=== PATIENT | male | born 1975 | race Two or more races ===

== ENCOUNTER 2017-10-26 18:05 | Inpatient (IN) | payer MEDICARE, OTHER ==
[2017-10-26] MEDS ORDERED: Sodium Chloride 0.9% 1,000 ML IV ONE (18:16)
--- NOTE | 2017-10-26 18:23 | ED Physician Chart ---
ED Chief Complaint/HPI - Patient Information Date Seen:: 10/26/17 Time Seen:: 18:00 Chief Complaint:: fever History of Present Illness:: Patient's had temperature up to 100.4 today and congestion for an unspecified length of time at his [facility] facility. Chest x-ray taken they are showed bilateral pneumonia. Allergies:: Allergies Allergy/AdvReac Type Severity Reaction Status Date / Time No Known Allergies Allergy Verified 10/26/17 18:12 Historian:: EMS Review:: Transfer documents Reviewed ED Review of Systems - Review of Systems General/Constitutional: Fever Skin: No skin lesions Head: No headache Eyes: No loss of vision ENT: No earache Neck: No neck pain Cardio Vascular: No chest pain Pulmonary: No wheezing GI: No nausea, No vomiting, No diarrhea G/U: No dysuria Musculoskeletal: No bone or joint pain, No back pain, No muscle pain Psychiatric: Prior psych history ED Past Medical History - Past Medical History Past Medical History: Asthma/COPD, Other (psychosis; schizophrenia; avascular necrosis of the left hip) Family History: Other (unavailable) Social History: Care Facility Surgical History: other (unknown) Psychiatricy History: Schizophrenia, Other (psychosis) Family Medical History - Family Member Mother History Unknown: Yes ED Physical Exam - Physical Examination Other Gen/Cons comments:: Chronically ill-appearing; fairly verbal Head: Atraumatic Eyes: Lids, conjuctiva normal, PERRL Skin: Nl inspection, No rash, No skin lesions ENMT: External ears, nose nl Neck: No nuchal rigidity Respiratory: Nl effort/Exclusion, Clear to Auscultation, No Wheeze/Rhonchi/Rales Other Cardio Vascular comments:: Heart sounds barely audible GI: No tenderness/rebounding/guarding, No organomegaly : No CVA tenderness Other Extremities comments:: Flexion deformity of wrist and fingers; plantar flexion deformity of feet Neuro/Psych: No focal deficits ED Labs/Radiology/EKG Results - Lab Results Results: Laboratory Results - last 24 hr 10/26/17 10/26/17 10/26/17 18:29 18:29 18:29 WBC 16.6 H RBC 4.89 Hgb 13.9 Hct 42.4 MCV 86.7 MCH 28.4 MCHC Differential 32.8 RDW 12.9 Plt Count 579 H MPV 6.7 Band Neutrophils % 6 Neutrophils (Manual) 89 H Lymphocytes 4 L Monocytes 1 L Eosinophils 0 Basophils 0 Platelet Estimate INCREASED PLATELETS Sodium 125 L Potassium 4.3 Chloride 89 L Carbon Dioxide 25.8 Anion Gap 14.5 BUN 25 Creatinine 0.5 L Est GFR ( Amer) > 60.0 Est GFR (Non-Af Amer) > 60.0 BUN/Creatinine Ratio 50.0 Glucose 115 H Whole Bld Lactic Acid 1.84 Calcium 9.5 Magnesium 2.0 - Radiology Results Results: Chest x-ray appeared negative to ma ED Reassessment (Disposition) - Reassessment Reassessment Condition:: Unchanged - Diagnosis Diagnosis:: Pneumonia; hypoxemia; schizophrenia; psychosis - Patient Disposition Admitted to:: Telemetry Spoke to:: Anna Gonzalez Admitting Medical Physician:: Anna Gonzalez Condition at Disposition:: Stable, Unchanged
[2017-10-26 18:36] LABS: HEMATOCRIT 42.4 % (41.0-60); HEMOGLOBIN 13.9 gm/dL (12-16); MANUAL DIFF REQUIRED? YES; MEAN CELL VOLUME 86.7 fl (80-99); MEAN CORPUSCULAR HEMOGLOBIN 28.4 pg (26.0-30.0); MEAN CORPUSCULAR HGB CONC 32.8 pg (28.0-36.0); MEAN PLATELET VOLUME 6.7 fl; PLATELET COUNT 579 Th/cmm (150-400); RED BLOOD COUNT 4.89 Mil/cmm (4.30-5.70); RED CELL DISTRIBUTION WIDTH 12.9 % (11.5-20.0)
[2017-10-26 18:46] LABS: WHITE BLOOD COUNT 16.6 Th/cmm (4.8-10.8)
[2017-10-26 18:53] LABS: ANION GAP 14.5 (7.0-16.0); BUN - UREA NITROGEN 25 mg/dL (7-25); CALCIUM SERUM 9.5 mg/dL (8.6-10.3); CARBON DIOXIDE 25.8 mEq/L (21.0-31.0); CHLORIDE 89 mEq/L (98-107); CREATININE - SERUM 0.5 mg/dL (0.7-1.3); GFR AFRICAN-AMERICAN > 60.0 ml/min (>90); GFR NON AFRICAN-AMERICAN > 60.0 ml/min; GLUCOSE 115 mg/dL (70-105); POTASSIUM SERUM 4.3 mEq/L (3.5-5.1); SODIUM SERUM 125 mEq/L (136-145)
[2017-10-26 19:11] LABS: BAND NEUTROPHILE 6 % (0-10); BASOPHIL 0 % (0-3); EOSINOPHIL 0 % (0-5); LYMPHOCYTE 4 % (20-50); MONOCYTE 1 % (2-10); NEUTROPHILS 89 % (40-80); PLATELET ESTIMATE INCREASED PLATELETS (NORMAL); TOTAL CELLS COUNTED 100
[2017-10-26] MEDS ORDERED: Piperacillin Sodium/Tazobact 3.375 gm Vial IV ONE ×2 (19:16→23:02)
[2017-10-26] MEDS ORDERED: Potassium Chloride 20 mEq ER Tab PO PRN (20:07)
[2017-10-26] MEDS ORDERED: Potassium Chloride 40 MEQ, Lidocaine 1% 20mL Vial 25 MG in Sodium Chloride 0.9% 250 ML IV PRN (20:07)
[2017-10-26] MEDS ORDERED: Mag Sulfate 2gm/50mL Premix 2 GM/50 ML BAG IV PRN (20:07)
[2017-10-26] MEDS: Sodium Chloride 0.9% 1,000 ML IV SCH (20:54)
[2017-10-26] MEDS ORDERED: Non-Formulary Item 1 EA (Melatonin [Melatonin] 1 TAB) PO SCH (21:00)
[2017-10-27] MEDS: Morphine Sulfate 4 mg/mL 1mL Syr IVP PRN ×2 (00:04→17:21)
[2017-10-27 03:37] VITALS: BP 128/61
[2017-10-27] MEDS ORDERED: Piperacillin Sodium/Tazobact 3.375 gm Vial IV ONE (05:12)
[2017-10-27 05:32] LABS: % BASOPHILS 1.7 % (0.0-2.0); % EOSINOPHILS 0.2 % (0.0-5.0); % LYMPHOCYTES 21.5 % (20.0-50.0); % MONOCYTES 3.5 % (2.0-10.0); % NEUTROPHILS 73.1 % (40.0-80.0); BASOPHILE ABSOLUTE 0.1 Th/cumm (0-0.2); LYMPHOCYTE ABSOLUTE 1.7 Th/cmm (1.5-3.0); MEAN CELL VOLUME 85.3 fl (80-99); MEAN CORPUSCULAR HEMOGLOBIN 28.8 pg (26.0-30.0); MEAN CORPUSCULAR HGB CONC 33.7 pg (28.0-36.0); MEAN PLATELET VOLUME 6.7 fl; MONOCYTE ABSOLUTE 0.3 Th/cmm (0.3-1.0); NEUTROPHILE ABSOLUTE 5.7 Th/cmm (1.8-8.0); RED BLOOD COUNT 3.82 Mil/cmm (4.30-5.70); RED CELL DISTRIBUTION WIDTH 12.9 % (11.5-20.0)
[2017-10-27 05:37] LABS: HEMATOCRIT 32.5 % (41.0-60); PLATELET COUNT 423 Th/cmm (150-400); WHITE BLOOD COUNT 7.8 Th/cmm (4.8-10.8)
[2017-10-27 05:46] LABS: ANION GAP 10.3 (7.0-16.0); BUN - UREA NITROGEN 13 mg/dL (7-25); CALCIUM SERUM 8.5 mg/dL (8.6-10.3); CARBON DIOXIDE 24.6 mEq/L (21.0-31.0); CHLORIDE 96 mEq/L (98-107); CREATININE - SERUM 0.4 mg/dL (0.7-1.3); GFR AFRICAN-AMERICAN > 60.0 ml/min (>90); GFR NON AFRICAN-AMERICAN > 60.0 ml/min; GLUCOSE 81 mg/dL (70-105); SODIUM SERUM 128 mEq/L (136-145)
[2017-10-27 06:00] LABS: POTASSIUM SERUM 2.9 mEq/L (3.5-5.1)
--- NOTE | 2017-10-27 07:51 | Diagnostic Imaging Report ---
Portable chest x-ray HISTORY: Shortness of breath There is a poor inspiration. The overall heart size appears normal. No definite acute focal pulmonary processes. IMPRESSION: 1. Allowing for a poor inspiration, no definite acute processes.
[2017-10-27] MEDS ORDERED: VTE Chemical Prophylaxis Screen/Admission MC PRN (08:00)
[2017-10-27] MEDS ORDERED: Probiotic Screen MC PRN (08:30)
[2017-10-27] MEDS: Lactobacillus Rhamnosus GG 15 Billion CFU CAP.SPRINK PO SCH (09:36)
--- NOTE | 2017-10-27 09:36 | History & Physical ---
ADMIT DATE: 10/26/2017 CHIEF COMPLAINT: Fevers, chills, cough, congestion. HISTORY OF PRESENT ILLNESS: The patient is a 42-year-old nonverbal male. He has a history of neuroleptic malignant syndrome. He has history of psychosis and had been on psych meds for years. At the nursing facility, he was found to have fevers, chills, and chest x-ray showed bilateral infiltrates. He was sent to the hospital as he was declining. He was found to have aspiration pneumonia and sepsis. PAST MEDICAL HISTORY: Significant for muscle spasm, neuroleptic malignant syndrome, COPD, overactive bladder, and psychosis. SOCIAL HISTORY: No history of alcohol, tobacco, or drug abuse. FAMILY HISTORY: Noncontributory. ALLERGIES: No known drug allergies. PAST SURGICAL HISTORY: No recent major surgeries. MEDICATIONS: All medications reviewed and reconciled. REVIEW OF SYSTEMS: GENERAL: Positive recent fatigue, fevers, and chills. HEENT: No recent head trauma or change in vision, taste, hearing, or smell. NEUROLOGIC: He has history of neuroleptic malignant syndrome. NECK: No recent tracheal deviation. ABDOMEN: No recent pain or distension. RESPIRATORY: Positive for recent cough, congestion, and decreased O2 saturations. MUSCULOSKELETAL: Positive for history of muscle contractures due to neuroleptic malignant syndrome. EXTREMITIES: No recent edema. SKIN: No recent rashes. PSYCHIATRIC: He has history of psychosis. GENITOURINARY: He has history of overactive bladder. PHYSICAL EXAMINATION: VITAL SIGNS: Temperature 97.8 degrees, heart rate is 98, respirations 18, blood pressure 111/68, currently no pain. GENERAL: No acute distress, awake. He is alert to name. HEENT: No acute issues. NECK: Trachea is midline. CARDIOVASCULAR: Regular rate and rhythm. RESPIRATORY: Decreased breath sounds bilaterally with congestion and rales. ABDOMEN: Nontender, nondistended. SKIN: No rashes. MUSCULOSKELETAL: He has significant muscle contractures upper and lower extremities. He is bedbound. EXTREMITIES: No edema. PSYCHIATRIC: Currently no psychosis or hallucinations. ABDOMEN: Nontender, nondistended. SKIN: No rashes. LABORATORY DATA: Chest x-ray from [facility] from yesterday 10/26/2017 shows bilateral infiltrates. Sodium 125, potassium 4.3, chloride 89, bicarbonate 25.8, BUN 25, creatinine 0.5, glucose 115, calcium is 9.5. Potassium is 2.9. White count is 16.6, hemoglobin is 13.9, platelet count is 579,000. ASSESSMENT/PLAN: 1. Bilateral aspiration pneumonia. 2. Sepsis. 3. Hypokalemia. 4. Muscle spasms. 5. Neuroleptic malignant syndrome. 6. Chronic obstructive pulmonary disease. 7. Overactive bladder. 8. Hyponatremia. PLAN: The patient is on IV normal saline. His sodium has come up to 128. He is also getting K-rider today. He is on IV Zosyn. Follow up on CBC, chemistry panel tomorrow. Prognosis is guarded. I have also started him on heparin for DVT prophylaxis. Continue pain control. He is on a soft diet with nectar thick consistency for the liquids as he has been at the [facility] facility. Continue IV Zosyn. Monitor for any reactions. JOB# [id number]
[2017-10-27] MEDS: Multivitamin w/ Minerals Tab PO SCH (09:38)
[2017-10-27] MEDS: Sodium Chloride 0.9% 1,000 ML IV SCH (14:18)
[2017-10-27 20:08] LABS: A1C % 6.2 % (4.0-6.0)
[2017-10-28] MEDS: Morphine Sulfate 4 mg/mL 1mL Syr IVP PRN ×2 (01:29→20:29)
[2017-10-28] MEDS: Sodium Chloride 0.9% 1,000 ML IV SCH ×2 (04:14→19:14)
[2017-10-28 05:51] LABS: % BASOPHILS 0.4 % (0.0-2.0); % EOSINOPHILS 0.5 % (0.0-5.0); % LYMPHOCYTES 20.8 % (20.0-50.0); % MONOCYTES 6.5 % (2.0-10.0); % NEUTROPHILS 71.8 % (40.0-80.0); HEMATOCRIT 31.4 % (41.0-60); HEMOGLOBIN 10.3 gm/dL (12-16); LYMPHOCYTE ABSOLUTE 1.2 Th/cmm (1.5-3.0); MEAN CELL VOLUME 86.2 fl (80-99); MEAN CORPUSCULAR HEMOGLOBIN 28.3 pg (26.0-30.0); MEAN CORPUSCULAR HGB CONC 32.8 pg (28.0-36.0); MEAN PLATELET VOLUME 6.9 fl; MONOCYTE ABSOLUTE 0.4 Th/cmm (0.3-1.0); NEUTROPHILE ABSOLUTE 4.2 Th/cmm (1.8-8.0); PLATELET COUNT 450 Th/cmm (150-400); RED BLOOD COUNT 3.64 Mil/cmm (4.30-5.70); RED CELL DISTRIBUTION WIDTH 12.9 % (11.5-20.0); WHITE BLOOD COUNT 5.8 Th/cmm (4.8-10.8)
[2017-10-28 06:06] LABS: BUN - UREA NITROGEN 7 mg/dL (7-25); CALCIUM SERUM 8.1 mg/dL (8.6-10.3); CARBON DIOXIDE 25.5 mEq/L (21.0-31.0); CHLORIDE 98 mEq/L (98-107); CREATININE - SERUM 0.3 mg/dL (0.7-1.3); GFR AFRICAN-AMERICAN > 60.0 ml/min (>90); GFR NON AFRICAN-AMERICAN > 60.0 ml/min; GLUCOSE 84 mg/dL (70-105); POTASSIUM SERUM 3.5 mEq/L (3.5-5.1); SODIUM SERUM 129 mEq/L (136-145)
[2017-10-28] MEDS: Multivitamin w/ Minerals Tab PO SCH (08:09)
[2017-10-28] MEDS: Lactobacillus Rhamnosus GG 15 Billion CFU CAP.SPRINK PO SCH (08:09)
--- NOTE | 2017-10-28 09:42 | General Progress Note ---
Subjective - Review of Systems Service Date: 10/28/17 Subjective: Pt seen and eval. NAD. In bed. Awake and alert. Met with pt's cousin, José Luis, and answered all her questions. Pt and cousin don't want to go back to [facility]. I met with senior construction manager and ostrich farm worker in order to respect their wishes. No n,v,d or cp. Pt has chronic pain from the muscle spasms and contractures. Objective - Results Result Diagrams: 10/28/17 05:13 10/28/17 05:13 Recent Labs: Laboratory Last Values WBC 5.8 Th/cmm (4.8-10.8) 10/28/17 05:13 RBC 3.64 Mil/cmm (4.30-5.70) L 10/28/17 05:13 Hgb 10.3 gm/dL (12-16) L 10/28/17 05:13 Hct 31.4 % (41.0-60) L 10/28/17 05:13 MCV 86.2 fl (80-99) 10/28/17 05:13 MCH 28.3 pg (26.0-30.0) 10/28/17 05:13 MCHC Differential 32.8 pg (28.0-36.0) 10/28/17 05:13 RDW 12.9 % (11.5-20.0) 10/28/17 05:13 Plt Count 450 Th/cmm (150-400) H 10/28/17 05:13 MPV 6.9 fl 10/28/17 05:13 Neutrophils % 71.8 % (40.0-80.0) 10/28/17 05:13 Band Neutrophils % 6 % (0-10) 10/26/17 18:29 Lymphocytes % 20.8 % (20.0-50.0) 10/28/17 05:13 Monocytes % 6.5 % (2.0-10.0) 10/28/17 05:13 Eosinophils % 0.5 % (0.0-5.0) 10/28/17 05:13 Basophils % 0.4 % (0.0-2.0) 10/28/17 05:13 Neutrophils (Manual) 89 % (40-80) H 10/26/17 18:29 Lymphocytes 4 % (20-50) L 10/26/17 18:29 Monocytes 1 % (2-10) L 10/26/17 18:29 Eosinophils 0 % (0-5) 10/26/17 18:29 Basophils 0 % (0-3) 10/26/17 18:29 Platelet Estimate INCREASED PLATELETS (NORMAL) 10/26/17 18:29 Sodium 129 mEq/L (136-145) L 10/28/17 05:13 Potassium 3.5 mEq/L (3.5-5.1) 10/28/17 05:13 Chloride 98 mEq/L (98-107) 10/28/17 05:13 Carbon Dioxide 25.5 mEq/L (21.0-31.0) 10/28/17 05:13 Anion Gap 9.0 (7.0-16.0) 10/28/17 05:13 BUN 7 mg/dL (7-25) 10/28/17 05:13 Creatinine 0.3 mg/dL (0.7-1.3) L 10/28/17 05:13 Est GFR ( Amer) > 60.0 ml/min (>90) 10/28/17 05:13 Est GFR (Non-Af Amer) > 60.0 ml/min 10/28/17 05:13 BUN/Creatinine Ratio 23.3 10/28/17 05:13 Glucose 84 mg/dL (70-105) 10/28/17 05:13 Hemoglobin A1c % 6.2 % (4.0-6.0) H 10/26/17 18:29 Whole Bld Lactic Acid 1.84 mmol/L (0.60-1.99) 10/26/17 18:29 Calcium 8.1 mg/dL (8.6-10.3) L 10/28/17 05:13 Magnesium 2.0 mg/dL (1.9-2.7) 10/26/17 18:29 - Physical Exam Vitals and I&O: Vital Signs Temp 97.7 F 10/28/17 04:44 Pulse 79 10/28/17 07:18 Resp 18 10/28/17 07:18 BP 102/51 10/28/17 04:44 Pulse Ox 98 10/28/17 07:18 Intake & Output 04/12/18 04/13/18 04/13/18 18:59 06:59 18:59 Intake Total 2172.5 1100 Output Total 0 Balance 2172.5 1100 Weight (lbs) 50.802 kg 56.155 kg Intake: Intake, IV Amount 1422.5 1100 Piperacillin Sodium/ 150 100 Tazobact 3.375 gm In Sodium Chloride 0.9% 50 ml @ 100 mls/hr IV Q6HR [facility] Rx#:[id number] Potassium Chloride 40 meq 272.5 Lidocaine 1% 20mL Vial 25 mg In Sodium Chloride 0.9% 250 ml @ 68 mls/hr IV DAILY PRN Rx#: [id number] Sodium Chloride 0.9% 1, 1000 1000 000 ml @ 75 mls/hr IV . [id number] [facility] Rx#:[id number] Oral 400 Other 350 Output: Stool 0 Other: # Voids 3 5 # Bowel Movements 1 Weight Source Bedscale Bedscale Active Medications: Current Medications Acetaminophen (Tylenol) 650 mg PO Q6H PRN PRN Reason: HEADACHE/TEMP ABOVE 100F Stop: 12/25/17 20:06 Last Admin: 10/27/17 00:05 Dose: 650 mg Bromocriptine Mesylate (Parlodel) 2.5 mg PO TID [facility] Stop: 12/26/17 08:59 Last Admin: 10/28/17 08:09 Dose: 2.5 mg Docusate Sodium (Colace) 100 mg PO BID PRN PRN Reason: Constipation Stop: 12/25/17 20:06 Heparin Sodium (Porcine) (Heparin) 5,000 units SUBQ Q12HR [facility] Stop: 12/25/17 20:59 Last Admin: 10/28/17 08:10 Dose: 5,000 units Potassium Chloride 40 meq/Lidocaine HCl 25 mg/ Sodium Chloride 272.5 mls @ 68 mls/hr IV DAILY PRN PRN Reason: k level less than 3.2 Stop: 12/25/17 20:06 Last Infusion: 10/27/17 12:30 Dose: Infused Magnesium Sulfate (Magnesium Sulfate Premix) 2 gm in 50 mls @ 25 mls/hr IV DAILY PRN PRN Reason: Magnesium level less than 1.6 Stop: 12/25/17 20:06 Sodium Chloride (Nacl 0.9%) 1,000 mls @ 75 mls/hr IV .[id number] [facility] Stop: 12/25/17 20:14 Last Admin: 10/28/17 04:14 Dose: 75 mls/hr Piperacillin Sod/Tazobactam (Sod 3.375 gm/ Sodium Chloride) 50 mls @ 100 mls/ hr IV Q6HR [facility] Stop: 12/26/17 00:00 Last Infusion: 10/28/17 06:01 Dose: Infused Lactobacillus Rhamnosus (Culturelle 15b) 1 each PO DAILY [facility] Stop: 12/26/17 08:59 Last Admin: 10/28/17 08:09 Dose: 1 each Lorazepam (Ativan) 1 mg IVP Q4HR PRN; Protocol PRN Reason: Agitation Last Admin: 10/28/17 04:18 Dose: 1 mg Magnesium Oxide (Mag-Oxide) 400 mg PO BID PRN PRN Reason: Mg less than 1.9 Stop: 12/25/17 20:06 Methocarbamol (Robaxin) 500 mg PO TID [facility] Stop: 12/26/17 08:59 Last Admin: 10/28/17 08:09 Dose: 500 mg Miscellaneous (Zosyn Iv Per Pharmacy) 1 ea PRN PRN PRN Reason: PROTOCOL Stop: 12/25/17 20:05 Miscellaneous (Vte Chemical Prophylaxis Screen/ Admission) 1 ea PRN PRN PRN Reason: PROTOCOL Stop: 12/26/17 07:59 Miscellaneous (Probiotic Screen) 1 ea PRN PRN PRN Reason: PROTOCOL Stop: 12/26/17 08:29 Morphine Sulfate (Morphine) 1 mg IVP Q4HR PRN PRN Reason: Severe Pain Stop: 12/25/17 20:06 Last Admin: 10/28/17 01:29 Dose: 1 mg Ondansetron HCl (Zofran) 4 mg IVP Q6H PRN PRN Reason: Nausea / Vomiting Stop: 12/25/17 20:06 Potassium Chloride (Klor-Con) 40 meq PO DAILY PRN PRN Reason: k level less than 3.5 Stop: 12/25/17 20:06 Quetiapine Fumarate (Seroquel) 100 mg PO HS [facility]ZZIE PRN Reason: Protocol Stop: 12/25/17 20:59 Last Admin: 10/27/17 20:12 Dose: 100 mg General: Alert, Cooperative HEENT: Atraumatic, PERRLA, EOMI Neck: Supple, no JVD, no Thyromegaly Cardiovascular: Regular rate, Normal S1, Normal S2 Lungs: Other (has bl rales) Assessment/Plan - Assessment Assessment: Asp PNA Neuroleptic Malignant syn-per history Muscle spasms COPD OAB Hyponatremia - Plan Plan: On IV Zosyn. Will send inquiries to other facilities. Met with niece, had an extended meeting. Continue pain control. Muscle spasms stable. Nutritional Asmnt/Malnutr-PDOC - Dietary Evaluation Malnutrition Findings (Please click <Entered> for more info): Nutritional Asmnt/Malnutrition Start: 10/27/17 16: 49 Text: Status: Complete Freq: Document 10/27/17 16:49 MONET (Rec: 10/27/17 17:03 [facility] Nutritional Asmnt/Malnutrition Patient General Information Nutritional Screening High Risk Consult Diagnosis aspiration PNA Pertinent Medical Hx/Surgical Hx muscle spasm, neuroleptic malignant syndrome, COPD, overactive bladder, psychosis Subjective Information Consult received for wound. Pt seen lying in bed at time of visit, family at bedside. Pt has no preference on food. Per EMR, pt consumed 75% of breakfast this morning. Current Diet Order/ Nutrition Support mech chopped, nectar liquid Pertinent Labs colace, culturelle, piperacillin, kcl, seroquel, nacl 0.9% Nutritional Hx/Data Height 1.65 m Height (Calculated Centimeters) 165.1 Current Weight (lbs) 50.802 kg Weight (Calculated Kilograms) 50.8 Weight (Calculated Grams) 07756.3 [place] Body Weight 136 Body Mass Index (BMI) 18.6 Weight Status Approriate GI Symptoms GI Symptoms None Difficult in: None Skin Integrity/Comment: Open small wound on fernanda prominence on left upper back Estimated Nutritional Goals BEE in Kcals: Using Current wt Calories/Kcals/Kg 27-32 Kcals Calculated 8357-2879 Protein: Using Current wt Protein g/k.2-1.4 Protein Calculated 61-71 Fluid: ml 1377-1632ml (1ml/kcal) Nutritional Problem 1. Problem Problem increased nutrition needs Etiology increased metabolic demand for wound healing Signs/Symptoms: small open wound on back Malnutrition Alert Body Fat Depletion (Non-Severe) Mild Depletion Protein-Calorie Malnutrition N/A Is there a minimum of two criteria No selected? Query Text:Check all the applicable criteria. A minimum of two criteria are recommended for diagnosis of either severe or non-severe malnutrition. Intervention/Recommendation Comments 1. Continue with current diet as ordered. Encouraged PO intake. 2. Monitor PO intake, wt, labs and skin integrity 3. F/U as high risk in 2-3 days, 10/29-10/30 Expected Outcomes/Goals Expected Outcomes/Goals 1. PO intake to meet at least 75% of nutritional needs. 2. Wt stability, wound to heal , labs to approach WNL.
--- NOTE | 2017-10-29 05:11 | General Progress Note ---
Subjective - Review of Systems Service Date: 10/29/17 Events since last encounter: The patient refuses to go back to [facility]. He would like to discuss the possibility of going to new [facility] facility. A list has been provided to the family Subjective: The patient is resting comfortably in bed. The patient has muscle spasms and bilateral upper and lower extremity contractures. No complaints at this time. Denies chest pain, shortness of breath, abdominal pain, dysuria, or falls Objective - Results Result Diagrams: 10/28/17 05:13 10/28/17 05:13 Recent Labs: Laboratory Last Values WBC 5.8 Th/cmm (4.8-10.8) 10/28/17 05:13 RBC 3.64 Mil/cmm (4.30-5.70) L 10/28/17 05:13 Hgb 10.3 gm/dL (12-16) L 10/28/17 05:13 Hct 31.4 % (41.0-60) L 10/28/17 05:13 MCV 86.2 fl (80-99) 10/28/17 05:13 MCH 28.3 pg (26.0-30.0) 10/28/17 05:13 MCHC Differential 32.8 pg (28.0-36.0) 10/28/17 05:13 RDW 12.9 % (11.5-20.0) 10/28/17 05:13 Plt Count 450 Th/cmm (150-400) H 10/28/17 05:13 MPV 6.9 fl 10/28/17 05:13 Neutrophils % 71.8 % (40.0-80.0) 10/28/17 05:13 Band Neutrophils % 6 % (0-10) 10/26/17 18:29 Lymphocytes % 20.8 % (20.0-50.0) 10/28/17 05:13 Monocytes % 6.5 % (2.0-10.0) 10/28/17 05:13 Eosinophils % 0.5 % (0.0-5.0) 10/28/17 05:13 Basophils % 0.4 % (0.0-2.0) 10/28/17 05:13 Neutrophils (Manual) 89 % (40-80) H 10/26/17 18:29 Lymphocytes 4 % (20-50) L 10/26/17 18:29 Monocytes 1 % (2-10) L 10/26/17 18:29 Eosinophils 0 % (0-5) 10/26/17 18:29 Basophils 0 % (0-3) 10/26/17 18:29 Platelet Estimate INCREASED PLATELETS (NORMAL) 10/26/17 18:29 Sodium 129 mEq/L (136-145) L 10/28/17 05:13 Potassium 3.5 mEq/L (3.5-5.1) 10/28/17 05:13 Chloride 98 mEq/L (98-107) 10/28/17 05:13 Carbon Dioxide 25.5 mEq/L (21.0-31.0) 10/28/17 05:13 Anion Gap 9.0 (7.0-16.0) 10/28/17 05:13 BUN 7 mg/dL (7-25) 10/28/17 05:13 Creatinine 0.3 mg/dL (0.7-1.3) L 10/28/17 05:13 Est GFR ( Amer) > 60.0 ml/min (>90) 10/28/17 05:13 Est GFR (Non-Af Amer) > 60.0 ml/min 10/28/17 05:13 BUN/Creatinine Ratio 23.3 10/28/17 05:13 Glucose 84 mg/dL (70-105) 10/28/17 05:13 Hemoglobin A1c % 6.2 % (4.0-6.0) H 10/26/17 18:29 Whole Bld Lactic Acid 1.84 mmol/L (0.60-1.99) 10/26/17 18:29 Calcium 8.1 mg/dL (8.6-10.3) L 10/28/17 05:13 Magnesium 2.0 mg/dL (1.9-2.7) 10/26/17 18:29 - Physical Exam Vitals and I&O: Vital Signs Temp 99.1 F 10/29/17 00:00 Pulse 70 10/29/17 00:00 Resp 17 10/29/17 00:00 BP 129/66 10/29/17 00:00 Pulse Ox 97 10/29/17 00:00 Intake & Output 10/28/17 10/28/17 10/29/17 06:59 18:59 06:59 Intake Total 1100 1850 50 Output Total 0 Balance 1100 1850 50 Weight (lbs) 56.155 kg 55.792 kg Intake: Intake, IV Amount 1100 1050 50 Piperacillin Sodium/ 100 50 50 Tazobact 3.375 gm In Sodium Chloride 0.9% 50 ml @ 100 mls/hr IV Q6HR [facility] Rx#:[id number] Sodium Chloride 0.9% 1, 1000 1000 000 ml @ 75 mls/hr IV . [id number] [facility] Rx#:[id number] Oral 800 Output: Stool 0 Other: # Voids 5 4 # Bowel Movements 1 Weight Source Bedscale Bedscale Active Medications: Current Medications Acetaminophen (Tylenol) 650 mg PO Q6H PRN PRN Reason: HEADACHE/TEMP ABOVE 100F Stop: 12/25/17 20:06 Last Admin: 10/28/17 12:57 Dose: 650 mg Bromocriptine Mesylate (Parlodel) 2.5 mg PO TID [facility] Stop: 12/26/17 08:59 Last Admin: 10/28/17 21:40 Dose: 2.5 mg Docusate Sodium (Colace) 100 mg PO BID PRN PRN Reason: Constipation Stop: 12/25/17 20:06 Heparin Sodium (Porcine) (Heparin) 5,000 units SUBQ Q12HR [facility] Stop: 12/25/17 20:59 Last Admin: 10/28/17 20:32 Dose: 5,000 units Potassium Chloride 40 meq/Lidocaine HCl 25 mg/ Sodium Chloride 272.5 mls @ 68 mls/hr IV DAILY PRN PRN Reason: k level less than 3.2 Stop: 12/25/17 20:06 Last Infusion: 10/27/17 12:30 Dose: Infused Magnesium Sulfate (Magnesium Sulfate Premix) 2 gm in 50 mls @ 25 mls/hr IV DAILY PRN PRN Reason: Magnesium level less than 1.6 Stop: 12/25/17 20:06 Sodium Chloride (Nacl 0.9%) 1,000 mls @ 75 mls/hr IV .[id number] [facility] Stop: 12/25/17 20:14 Last Admin: 10/28/17 19:14 Dose: 75 mls/hr Piperacillin Sod/Tazobactam (Sod 3.375 gm/ Sodium Chloride) 50 mls @ 100 mls/ hr IV Q6HR [facility] Stop: 12/26/17 00:00 Last Admin: 10/29/17 00:52 Dose: 100 mls/hr Lactobacillus Rhamnosus (Culturelle 15b) 1 each PO DAILY [facility] Stop: 12/26/17 08:59 Last Admin: 10/28/17 08:09 Dose: 1 each Lorazepam (Ativan) 1 mg IVP Q4HR PRN; Protocol PRN Reason: Agitation Last Admin: 10/28/17 12:16 Dose: 1 mg Magnesium Oxide (Mag-Oxide) 400 mg PO BID PRN PRN Reason: Mg less than 1.9 Stop: 12/25/17 20:06 Methocarbamol (Robaxin) 500 mg PO TID [facility] Stop: 12/26/17 08:59 Last Admin: 10/28/17 20:35 Dose: 500 mg Miscellaneous (Zosyn Iv Per Pharmacy) 1 ea PRN PRN PRN Reason: PROTOCOL Stop: 12/25/17 20:05 Miscellaneous (Vte Chemical Prophylaxis Screen/ Admission) 1 ea PRN PRN PRN Reason: PROTOCOL Stop: 12/26/17 07:59 Miscellaneous (Probiotic Screen) 1 ea PRN PRN PRN Reason: PROTOCOL Stop: 12/26/17 08:29 Morphine Sulfate (Morphine) 1 mg IVP Q4HR PRN PRN Reason: Severe Pain Stop: 12/25/17 20:06 Last Admin: 10/28/17 20:29 Dose: 1 mg Ondansetron HCl (Zofran) 4 mg IVP Q6H PRN PRN Reason: Nausea / Vomiting Stop: 12/25/17 20:06 Potassium Chloride (Klor-Con) 40 meq PO DAILY PRN PRN Reason: k level less than 3.5 Stop: 12/25/17 20:06 Quetiapine Fumarate (Seroquel) 100 mg PO HS LIZZIE PRN Reason: Protocol Stop: 12/25/17 20:59 Last Admin: 10/28/17 20:35 Dose: 100 mg General: Alert, Cooperative HEENT: Atraumatic, PERRLA, EOMI Neck: Supple, no JVD, no Thyromegaly Cardiovascular: Regular rate, Normal S1, Normal S2 Lungs: Other (has bl rales) Abdomen: Soft Neurological: Other (bilateral upper and lower extremity contractures) Assessment/Plan - Assessment Assessment: Asp PNA Neuroleptic Malignant syn-per history Muscle spasms COPD OAB Hyponatremia - Plan Plan: Continue IV antibiotics and respiratory support. Continue psychiatric medications. The patient and his family does not want to go back to [facility], a list of potential [facility] facilities has been brought into the family. We'll follow up with family as well as case management about possible placement. Nutritional Asmnt/Malnutr-PDOC - Dietary Evaluation Malnutrition Findings (Please click <Entered> for more info): Nutritional Asmnt/Malnutrition Start: 10/27/17 16: 49 Text: Status: Complete Freq: Document 10/27/17 16:49 MONET (Rec: 10/27/17 17:03 MONET LEONARDO-[email or web address]) Nutritional Asmnt/Malnutrition Patient General Information Nutritional Screening High Risk Consult Diagnosis aspiration PNA Pertinent Medical Hx/Surgical Hx muscle spasm, neuroleptic malignant syndrome, COPD, overactive bladder, psychosis Subjective Information Consult received for wound. Pt seen lying in bed at time of visit, family at bedside. Pt has no preference on food. Per EMR, pt consumed 75% of breakfast this morning. Current Diet Order/ Nutrition Support mech chopped, nectar liquid Pertinent Labs colace, culturelle, piperacillin, kcl, seroquel, nacl 0.9% Nutritional Hx/Data Height 1.65 m Height (Calculated Centimeters) 165.1 Current Weight (lbs) 50.802 kg Weight (Calculated Kilograms) 50.8 Weight (Calculated Grams) 71756.3 [place] Body Weight 136 Body Mass Index (BMI) 18.6 Weight Status Approriate GI Symptoms GI Symptoms None Difficult in: None Skin Integrity/Comment: Open small wound on fernanda prominence on left upper back Estimated Nutritional Goals BEE in Kcals: Using Current wt Calories/Kcals/Kg 27-32 Kcals Calculated 2897-5691 Protein: Using Current wt Protein g/k.2-1.4 Protein Calculated 61-71 Fluid: ml 1377-1632ml (1ml/kcal) Nutritional Problem 1. Problem Problem increased nutrition needs Etiology increased metabolic demand for wound healing Signs/Symptoms: small open wound on back Malnutrition Alert Body Fat Depletion (Non-Severe) Mild Depletion Protein-Calorie Malnutrition N/A Is there a minimum of two criteria No selected? Query Text:Check all the applicable criteria. A minimum of two criteria are recommended for diagnosis of either severe or non-severe malnutrition. Intervention/Recommendation Comments 1. Continue with current diet as ordered. Encouraged PO intake. 2. Monitor PO intake, wt, labs and skin integrity 3. F/U as high risk in 2-3 days, 10/29-10/30 Expected Outcomes/Goals Expected Outcomes/Goals 1. PO intake to meet at least 75% of nutritional needs. 2. Wt stability, wound to heal , labs to approach WNL.
[2017-10-29 05:43] LABS: % LYMPHOCYTES 21.8 % (20.0-50.0); % MONOCYTES 3.8 % (2.0-10.0); % NEUTROPHILS 73.4 % (40.0-80.0); EOSINOPHILE ABSOLUTE 0.1 Th/cmm (0.1-0.4); HEMATOCRIT 33.4 % (41.0-60); LYMPHOCYTE ABSOLUTE 1.2 Th/cmm (1.5-3.0); MEAN CELL VOLUME 86.4 fl (80-99); MEAN CORPUSCULAR HEMOGLOBIN 28.4 pg (26.0-30.0); MEAN CORPUSCULAR HGB CONC 32.8 pg (28.0-36.0); MEAN PLATELET VOLUME 7.4 fl; MONOCYTE ABSOLUTE 0.2 Th/cmm (0.3-1.0); NEUTROPHILE ABSOLUTE 3.9 Th/cmm (1.8-8.0); PLATELET COUNT 467 Th/cmm (150-400); RED BLOOD COUNT 3.87 Mil/cmm (4.30-5.70); RED CELL DISTRIBUTION WIDTH 12.8 % (11.5-20.0); WHITE BLOOD COUNT 5.4 Th/cmm (4.8-10.8)
[2017-10-29 05:57] LABS: ANION GAP 9.8 (7.0-16.0); BUN - UREA NITROGEN 4 mg/dL (7-25); CALCIUM SERUM 8.4 mg/dL (8.6-10.3); CHLORIDE 97 mEq/L (98-107); CREATININE - SERUM 0.3 mg/dL (0.7-1.3); GFR AFRICAN-AMERICAN > 60.0 ml/min (>90); GFR NON AFRICAN-AMERICAN > 60.0 ml/min; GLUCOSE 94 mg/dL (70-105); POTASSIUM SERUM 3.8 mEq/L (3.5-5.1); SODIUM SERUM 129 mEq/L (136-145)
[2017-10-29] MEDS: Multivitamin w/ Minerals Tab PO SCH (09:52)
[2017-10-29] MEDS: Lactobacillus Rhamnosus GG 15 Billion CFU CAP.SPRINK PO SCH (09:54)
[2017-10-29] MEDS: Morphine Sulfate 4 mg/mL 1mL Syr IVP PRN ×2 (10:05→17:25)
[2017-10-29] MEDS: Sodium Chloride 0.9% 1,000 ML IV SCH (21:44)
[2017-10-30 05:55] LABS: % EOSINOPHILS 0.6 % (0.0-5.0); % LYMPHOCYTES 26.5 % (20.0-50.0); % MONOCYTES 4.5 % (2.0-10.0); % NEUTROPHILS 68.4 % (40.0-80.0); HEMATOCRIT 33.9 % (41.0-60); HEMOGLOBIN 11.3 gm/dL (12-16); LYMPHOCYTE ABSOLUTE 1.4 Th/cmm (1.5-3.0); MEAN CELL VOLUME 85.6 fl (80-99); MEAN CORPUSCULAR HEMOGLOBIN 28.5 pg (26.0-30.0); MEAN CORPUSCULAR HGB CONC 33.3 pg (28.0-36.0); MEAN PLATELET VOLUME 7.2 fl; MONOCYTE ABSOLUTE 0.2 Th/cmm (0.3-1.0); NEUTROPHILE ABSOLUTE 3.6 Th/cmm (1.8-8.0); PLATELET COUNT 512 Th/cmm (150-400); RED BLOOD COUNT 3.96 Mil/cmm (4.30-5.70); RED CELL DISTRIBUTION WIDTH 12.8 % (11.5-20.0); WHITE BLOOD COUNT 5.2 Th/cmm (4.8-10.8)
[2017-10-30 06:14] LABS: ANION GAP 10.9 (7.0-16.0); BUN - UREA NITROGEN 6 mg/dL (7-25); CALCIUM SERUM 8.6 mg/dL (8.6-10.3); CARBON DIOXIDE 24.1 mEq/L (21.0-31.0); CHLORIDE 95 mEq/L (98-107); CREATININE - SERUM 0.3 mg/dL (0.7-1.3); GFR AFRICAN-AMERICAN > 60.0 ml/min (>90); GFR NON AFRICAN-AMERICAN > 60.0 ml/min; GLUCOSE 89 mg/dL (70-105); SODIUM SERUM 126 mEq/L (136-145)
[2017-10-30] MEDS: Lactobacillus Rhamnosus GG 15 Billion CFU CAP.SPRINK PO SCH (09:08)
[2017-10-30] MEDS: Multivitamin w/ Minerals Tab PO SCH (09:08)
--- NOTE | 2017-10-30 11:55 | General Progress Note ---
Subjective - Review of Systems Service Date: 10/30/17 Events since last encounter: The patient would like to go to a different penitentiary for continued treatment. Continue Iv antibiotics. Respiratory support as needed. Subjective: The patient is resting comfortably in bed. The patient has muscle spasms and bilateral upper and lower extremity contractures. No complaints at this time. Denies chest pain, shortness of breath, abdominal pain, dysuria, or falls Objective - Results Result Diagrams: 10/30/17 05:25 10/30/17 05:25 Recent Labs: Laboratory Last Values WBC 5.2 Th/cmm (4.8-10.8) 10/30/17 05:25 RBC 3.96 Mil/cmm (4.30-5.70) L 10/30/17 05:25 Hgb 11.3 gm/dL (12-16) L 10/30/17 05:25 Hct 33.9 % (41.0-60) L 10/30/17 05:25 MCV 85.6 fl (80-99) 10/30/17 05:25 MCH 28.5 pg (26.0-30.0) 10/30/17 05:25 MCHC Differential 33.3 pg (28.0-36.0) 10/30/17 05:25 RDW 12.8 % (11.5-20.0) 10/30/17 05:25 Plt Count 512 Th/cmm (150-400) H 10/30/17 05:25 MPV 7.2 fl 10/30/17 05:25 Neutrophils % 68.4 % (40.0-80.0) 10/30/17 05:25 Band Neutrophils % 6 % (0-10) 10/26/17 18:29 Lymphocytes % 26.5 % (20.0-50.0) 10/30/17 05:25 Monocytes % 4.5 % (2.0-10.0) 10/30/17 05:25 Eosinophils % 0.6 % (0.0-5.0) 10/30/17 05:25 Basophils % 0.0 % (0.0-2.0) 10/30/17 05:25 Neutrophils (Manual) 89 % (40-80) H 10/26/17 18:29 Lymphocytes 4 % (20-50) L 10/26/17 18:29 Monocytes 1 % (2-10) L 10/26/17 18:29 Eosinophils 0 % (0-5) 10/26/17 18:29 Basophils 0 % (0-3) 10/26/17 18:29 Platelet Estimate INCREASED PLATELETS (NORMAL) 10/26/17 18:29 Sodium 126 mEq/L (136-145) L 10/30/17 05:25 Potassium 4.0 mEq/L (3.5-5.1) 10/30/17 05:25 Chloride 95 mEq/L (98-107) L 10/30/17 05:25 Carbon Dioxide 24.1 mEq/L (21.0-31.0) 10/30/17 05:25 Anion Gap 10.9 (7.0-16.0) 10/30/17 05:25 BUN 6 mg/dL (7-25) L 10/30/17 05:25 Creatinine 0.3 mg/dL (0.7-1.3) L 10/30/17 05:25 Est GFR ( Amer) > 60.0 ml/min (>90) 10/30/17 05:25 Est GFR (Non-Af Amer) > 60.0 ml/min 10/30/17 05:25 BUN/Creatinine Ratio 20.0 10/30/17 05:25 Glucose 89 mg/dL (70-105) 10/30/17 05:25 Hemoglobin A1c % 6.2 % (4.0-6.0) H 10/26/17 18:29 Whole Bld Lactic Acid 1.84 mmol/L (0.60-1.99) 10/26/17 18:29 Calcium 8.6 mg/dL (8.6-10.3) 10/30/17 05:25 Magnesium 2.0 mg/dL (1.9-2.7) 10/26/17 18:29 - Physical Exam Vitals and I&O: Vital Signs Temp 98.0 F 10/30/17 08:00 Pulse 108 10/30/17 08:27 Resp 20 10/30/17 08:27 BP 143/86 10/30/17 08:00 Pulse Ox 97 10/30/17 08:27 Intake & Output 10/29/17 10/30/17 10/30/17 18:59 06:59 18:59 Intake Total 1150 100 Balance 1150 100 Weight (lbs) 53.569 kg Intake: Intake, IV Amount 1150 100 Piperacillin Sodium/ 150 100 Tazobact 3.375 gm In Sodium Chloride 0.9% 50 ml @ 100 mls/hr IV Q6HR [facility] Rx#:[id number] Sodium Chloride 0.9% 1, 1000 000 ml @ 75 mls/hr IV . [id number] [facility] Rx#:[id number] Other: # Voids 7 # Bowel Movements 0 Weight Source Bedscale Active Medications: Current Medications Acetaminophen (Tylenol) 650 mg PO Q6H PRN PRN Reason: HEADACHE/TEMP ABOVE 100F Stop: 12/25/17 20:06 Last Admin: 10/30/17 09:15 Dose: 650 mg Bromocriptine Mesylate (Parlodel) 2.5 mg PO TID [facility] Stop: 12/26/17 08:59 Last Admin: 10/30/17 09:08 Dose: 2.5 mg Docusate Sodium (Colace) 100 mg PO BID PRN PRN Reason: Constipation Stop: 12/25/17 20:06 Heparin Sodium (Porcine) (Heparin) 5,000 units SUBQ Q12HR [facility] Stop: 12/25/17 20:59 Last Admin: 10/30/17 09:08 Dose: 5,000 units Potassium Chloride 40 meq/Lidocaine HCl 25 mg/ Sodium Chloride 272.5 mls @ 68 mls/hr IV DAILY PRN PRN Reason: k level less than 3.2 Stop: 12/25/17 20:06 Last Infusion: 10/27/17 12:30 Dose: Infused Magnesium Sulfate (Magnesium Sulfate Premix) 2 gm in 50 mls @ 25 mls/hr IV DAILY PRN PRN Reason: Magnesium level less than 1.6 Stop: 12/25/17 20:06 Sodium Chloride (Nacl 0.9%) 1,000 mls @ 75 mls/hr IV .[id number] [facility] Stop: 12/25/17 20:14 Last Admin: 10/29/17 21:44 Dose: 75 mls/hr Piperacillin Sod/Tazobactam (Sod 3.375 gm/ Sodium Chloride) 50 mls @ 100 mls/ hr IV Q6HR [facility] Stop: 12/26/17 00:00 Last Infusion: 10/30/17 05:56 Dose: Infused Lactobacillus Rhamnosus (Culturelle 15b) 1 each PO DAILY [facility] Stop: 12/26/17 08:59 Last Admin: 10/30/17 09:08 Dose: 1 each Lorazepam (Ativan) 1 mg IVP Q4HR PRN; Protocol PRN Reason: Agitation Last Admin: 10/30/17 09:08 Dose: 1 mg Magnesium Oxide (Mag-Oxide) 400 mg PO BID PRN PRN Reason: Mg less than 1.9 Stop: 12/25/17 20:06 Methocarbamol (Robaxin) 500 mg PO TID [facility] Stop: 12/26/17 08:59 Last Admin: 10/30/17 09:08 Dose: 500 mg Miscellaneous (Zosyn Iv Per Pharmacy) 1 ea PRN PRN PRN Reason: PROTOCOL Stop: 12/25/17 20:05 Miscellaneous (Vte Chemical Prophylaxis Screen/ Admission) 1 [facility] PRN PRN PRN Reason: PROTOCOL Stop: 12/26/17 07:59 Miscellaneous (Probiotic Screen) 1 [facility] PRN PRN PRN Reason: PROTOCOL Stop: 12/26/17 08:29 Morphine Sulfate (Morphine) 1 mg IVP Q4HR PRN PRN Reason: Severe Pain Stop: 12/25/17 20:06 Last Admin: 10/29/17 17:25 Dose: 1 mg Ondansetron HCl (Zofran) 4 mg IVP Q6H PRN PRN Reason: Nausea / Vomiting Stop: 12/25/17 20:06 Potassium Chloride (Klor-Con) 40 meq PO DAILY PRN PRN Reason: k level less than 3.5 Stop: 12/25/17 20:06 Last Admin: 10/29/17 09:53 Dose: 40 meq Quetiapine Fumarate (Seroquel) 100 mg PO HS LIZZIE PRN Reason: Protocol Stop: 12/25/17 20:59 Last Admin: 10/29/17 20:23 Dose: 100 mg General: Alert, Cooperative HEENT: Atraumatic, PERRLA, EOMI Neck: Supple, no JVD, no Thyromegaly Cardiovascular: Regular rate, Normal S1, Normal S2 Lungs: Other (has bl rales) Abdomen: Soft Neurological: Other (bilateral upper and lower extremity contractures) Assessment/Plan - Assessment Assessment: Asp PNA Neuroleptic Malignant syn-per history Muscle spasms COPD OAB Hyponatremia - Plan Plan: Continue IV antibiotics and respiratory support. Continue psychiatric medications. The patient and his family does not want to go back to [facility], a list of potential custodial facilities has been brought into the family. We'll follow up with family as well as case management about possible placement. Nutritional Asmnt/Malnutr-PDOC - Dietary Evaluation Malnutrition Findings (Please click <Entered> for more info): Nutritional Asmnt/Malnutrition Start: 10/27/17 16: 49 Text: Status: Complete Freq: Document 10/27/17 16:49 HENG (Rec: 10/27/17 17:03 HENG [email or web address]) Nutritional Asmnt/Malnutrition Patient General Information Nutritional Screening High Risk Consult Diagnosis aspiration PNA Pertinent Medical Hx/Surgical Hx muscle spasm, neuroleptic malignant syndrome, COPD, overactive bladder, psychosis Subjective Information Consult received for wound. Pt seen lying in bed at time of visit, family at bedside. Pt has no preference on food. Per EMR, pt consumed 75% of breakfast this morning. Current Diet Order/ Nutrition Support mech chopped, nectar liquid Pertinent Labs colace, culturelle, piperacillin, kcl, seroquel, nacl 0.9% Nutritional Hx/Data Height 1.65 m Height (Calculated Centimeters) 165.1 Current Weight (lbs) 50.802 kg Weight (Calculated Kilograms) 50.8 Weight (Calculated Grams) 13264.3 [place] Body Weight 136 Body Mass Index (BMI) 18.6 Weight Status Approriate GI Symptoms GI Symptoms None Difficult in: None Skin Integrity/Comment: Open small wound on fernanda prominence on left upper back Estimated Nutritional Goals BEE in Kcals: Using Current wt Calories/Kcals/Kg 27-32 Kcals Calculated 7619-8007 Protein: Using Current wt Protein g/k.2-1.4 Protein Calculated 61-71 Fluid: ml 1377-1632ml (1ml/kcal) Nutritional Problem 1. Problem Problem increased nutrition needs Etiology increased metabolic demand for wound healing Signs/Symptoms: small open wound on back Malnutrition Alert Body Fat Depletion (Non-Severe) Mild Depletion Protein-Calorie Malnutrition N/A Is there a minimum of two criteria No selected? Query Text:Check all the applicable criteria. A minimum of two criteria are recommended for diagnosis of either severe or non-severe malnutrition. Intervention/Recommendation Comments 1. Continue with current diet as ordered. Encouraged PO intake. 2. Monitor PO intake, wt, labs and skin integrity 3. F/U as high risk in 2-3 days, 10/29-10/30 Expected Outcomes/Goals Expected Outcomes/Goals 1. PO intake to meet at least 75% of nutritional needs. 2. Wt stability, wound to heal , labs to approach WNL.
[2017-10-30] MEDS: Sodium Chloride 0.9% 1,000 ML IV SCH (15:56)
[2017-10-30] MEDS: Morphine Sulfate 4 mg/mL 1mL Syr IVP PRN ×2 (19:41→23:56)
[2017-10-31] MEDS: Morphine Sulfate 4 mg/mL 1mL Syr IVP PRN (04:01)
[2017-10-31 05:30] LABS: HEMOGLOBIN 11.5 gm/dL (12-16); LYMPHOCYTE ABSOLUTE 1.3 Th/cmm (1.5-3.0); MONOCYTE ABSOLUTE 0.3 Th/cmm (0.3-1.0); NEUTROPHILE ABSOLUTE 4.8 Th/cmm (1.8-8.0); WHITE BLOOD COUNT 6.4 Th/cmm (4.8-10.8)
[2017-10-31 05:35] LABS: % EOSINOPHILS 0.5 % (0.0-5.0); % LYMPHOCYTES 19.9 % (20.0-50.0); % MONOCYTES 5.3 % (2.0-10.0); % NEUTROPHILS 74.3 % (40.0-80.0); HEMATOCRIT 34.1 % (41.0-60); MEAN CELL VOLUME 85.3 fl (80-99); MEAN CORPUSCULAR HEMOGLOBIN 28.9 pg (26.0-30.0); MEAN CORPUSCULAR HGB CONC 33.9 pg (28.0-36.0); MEAN PLATELET VOLUME 7.3 fl; PLATELET COUNT 502 Th/cmm (150-400); RED BLOOD COUNT 3.99 Mil/cmm (4.30-5.70)
[2017-10-31 05:55] LABS: ANION GAP 11.4 (7.0-16.0); BUN - UREA NITROGEN 9 mg/dL (7-25); CALCIUM SERUM 8.6 mg/dL (8.6-10.3); CARBON DIOXIDE 23.4 mEq/L (21.0-31.0); CHLORIDE 97 mEq/L (98-107); CREATININE - SERUM 0.4 mg/dL (0.7-1.3); GFR AFRICAN-AMERICAN > 60.0 ml/min (>90); GFR NON AFRICAN-AMERICAN > 60.0 ml/min; GLUCOSE 84 mg/dL (70-105); POTASSIUM SERUM 3.8 mEq/L (3.5-5.1); SODIUM SERUM 128 mEq/L (136-145)
[2017-10-31] MEDS: Sodium Chloride 0.9% 1,000 ML IV SCH (06:34)
[2017-10-31] MEDS: Lactobacillus Rhamnosus GG 15 Billion CFU CAP.SPRINK PO SCH (08:43)
[2017-10-31] MEDS: Multivitamin w/ Minerals Tab PO SCH (08:43)
--- NOTE | 2017-10-31 08:46 | General Progress Note ---
Subjective - Review of Systems Service Date: 10/31/17 Subjective: Pt seen and eval. NAD. In bed. Awake and alert. I've been meeting with pt's cousin, José Luis. Pt and cousin don't want to go back to [facility]. I met with public information relations manager and rack room worker in order to respect their wishes. No n,v,d or cp. Pt has chronic pain from the muscle spasms and contractures. Pt has sweats, but no fevers or chills. Objective - Results Result Diagrams: 10/31/17 04:55 10/31/17 04:55 Recent Labs: Laboratory Last Values WBC 6.4 Th/cmm (4.8-10.8) 10/31/17 04:55 RBC 3.99 Mil/cmm (4.30-5.70) L 10/31/17 04:55 Hgb 11.5 gm/dL (12-16) L 10/31/17 04:55 Hct 34.1 % (41.0-60) L 10/31/17 04:55 MCV 85.3 fl (80-99) 10/31/17 04:55 MCH 28.9 pg (26.0-30.0) 10/31/17 04:55 MCHC Differential 33.9 pg (28.0-36.0) 10/31/17 04:55 RDW 13.0 % (11.5-20.0) 10/31/17 04:55 Plt Count 502 Th/cmm (150-400) H 10/31/17 04:55 MPV 7.3 fl 10/31/17 04:55 Neutrophils % 74.3 % (40.0-80.0) 10/31/17 04:55 Band Neutrophils % 6 % (0-10) 10/26/17 18:29 Lymphocytes % 19.9 % (20.0-50.0) L 10/31/17 04:55 Monocytes % 5.3 % (2.0-10.0) 10/31/17 04:55 Eosinophils % 0.5 % (0.0-5.0) 10/31/17 04:55 Basophils % 0.0 % (0.0-2.0) 10/31/17 04:55 Neutrophils (Manual) 89 % (40-80) H 10/26/17 18:29 Lymphocytes 4 % (20-50) L 10/26/17 18:29 Monocytes 1 % (2-10) L 10/26/17 18:29 Eosinophils 0 % (0-5) 10/26/17 18:29 Basophils 0 % (0-3) 10/26/17 18:29 Platelet Estimate INCREASED PLATELETS (NORMAL) 10/26/17 18:29 Sodium 128 mEq/L (136-145) L 10/31/17 04:55 Potassium 3.8 mEq/L (3.5-5.1) 10/31/17 04:55 Chloride 97 mEq/L (98-107) L 10/31/17 04:55 Carbon Dioxide 23.4 mEq/L (21.0-31.0) 10/31/17 04:55 Anion Gap 11.4 (7.0-16.0) 10/31/17 04:55 BUN 9 mg/dL (7-25) 10/31/17 04:55 Creatinine 0.4 mg/dL (0.7-1.3) L 10/31/17 04:55 Est GFR ( Amer) > 60.0 ml/min (>90) 10/31/17 04:55 Est GFR (Non-Af Amer) > 60.0 ml/min 10/31/17 04:55 BUN/Creatinine Ratio 22.5 10/31/17 04:55 Glucose 84 mg/dL (70-105) 10/31/17 04:55 Hemoglobin A1c % 6.2 % (4.0-6.0) H 10/26/17 18:29 Whole Bld Lactic Acid 1.84 mmol/L (0.60-1.99) 10/26/17 18:29 Calcium 8.6 mg/dL (8.6-10.3) 10/31/17 04:55 Magnesium 2.0 mg/dL (1.9-2.7) 10/26/17 18:29 - Physical Exam Vitals and I&O: Vital Signs Temp 97.6 F 10/31/17 08:08 Pulse 75 10/31/17 08:08 Resp 18 10/31/17 08:08 BP 114/64 10/31/17 08:08 Pulse Ox 99 10/31/17 08:08 Intake & Output 10/30/17 10/31/17 10/31/17 18:59 06:59 18:59 Intake Total 1700 1100 Balance 1700 1100 Weight (lbs) 53.524 kg 54.613 kg Intake: Intake, IV Amount 1100 1100 Piperacillin Sodium/ 100 100 Tazobact 3.375 gm In Sodium Chloride 0.9% 50 ml @ 100 mls/hr IV Q6HR [facility] Rx#:[id number] Sodium Chloride 0.9% 1, 1000 1000 000 ml @ 75 mls/hr IV . [id number] [facility] Rx#:[id number] Oral 600 Other: # Voids 3 # Bowel Movements 1 Weight Source Bedscale Bedscale Active Medications: Current Medications Acetaminophen (Tylenol) 650 mg PO Q6H PRN PRN Reason: HEADACHE/TEMP ABOVE 100F Stop: 12/25/17 20:06 Last Admin: 10/30/17 09:15 Dose: 650 mg Bromocriptine Mesylate (Parlodel) 2.5 mg PO TID [facility] Stop: 12/26/17 08:59 Last Admin: 10/31/17 08:43 Dose: 2.5 mg Docusate Sodium (Colace) 100 mg PO BID PRN PRN Reason: Constipation Stop: 12/25/17 20:06 Heparin Sodium (Porcine) (Heparin) 5,000 units SUBQ Q12HR [facility] Stop: 12/25/17 20:59 Last Admin: 10/31/17 08:43 Dose: 5,000 units Potassium Chloride 40 meq/Lidocaine HCl 25 mg/ Sodium Chloride 272.5 mls @ 68 mls/hr IV DAILY PRN PRN Reason: k level less than 3.2 Stop: 12/25/17 20:06 Last Infusion: 10/27/17 12:30 Dose: Infused Magnesium Sulfate (Magnesium Sulfate Premix) 2 gm in 50 mls @ 25 mls/hr IV DAILY PRN PRN Reason: Magnesium level less than 1.6 Stop: 12/25/17 20:06 Sodium Chloride (Nacl 0.9%) 1,000 mls @ 75 mls/hr IV .[id number] [facility] Stop: 12/25/17 20:14 Last Admin: 10/31/17 06:34 Dose: 75 mls/hr Piperacillin Sod/Tazobactam (Sod 3.375 gm/ Sodium Chloride) 50 mls @ 100 mls/ hr IV Q6HR [facility] Stop: 12/26/17 00:00 Last Infusion: 10/31/17 06:34 Dose: Infused Lactobacillus Rhamnosus (Culturelle 15b) 1 each PO DAILY [facility] Stop: 12/26/17 08:59 Last Admin: 10/31/17 08:43 Dose: 1 each Lorazepam (Ativan) 1 mg IVP Q4HR PRN; Protocol PRN Reason: Agitation Last Admin: 10/31/17 01:53 Dose: 1 mg Magnesium Oxide (Mag-Oxide) 400 mg PO BID PRN PRN Reason: Mg less than 1.9 Stop: 12/25/17 20:06 Methocarbamol (Robaxin) 500 mg PO TID [facility] Stop: 12/26/17 08:59 Last Admin: 10/31/17 08:43 Dose: 500 mg Miscellaneous (Zosyn Iv Per Pharmacy) 1 ea PRN PRN PRN Reason: PROTOCOL Stop: 12/25/17 20:05 Miscellaneous (Vte Chemical Prophylaxis Screen/ Admission) 1 ea PRN PRN PRN Reason: PROTOCOL Stop: 12/26/17 07:59 Miscellaneous (Probiotic Screen) 1 ea PRN PRN PRN Reason: PROTOCOL Stop: 12/26/17 08:29 Morphine Sulfate (Morphine) 1 mg IVP Q4HR PRN PRN Reason: Severe Pain Stop: 12/25/17 20:06 Last Admin: 10/31/17 04:01 Dose: 1 mg Ondansetron HCl (Zofran) 4 mg IVP Q6H PRN PRN Reason: Nausea / Vomiting Stop: 12/25/17 20:06 Potassium Chloride (Klor-Con) 40 meq PO DAILY PRN PRN Reason: k level less than 3.5 Stop: 12/25/17 20:06 Last Admin: 10/29/17 09:53 Dose: 40 meq Quetiapine Fumarate (Seroquel) 100 mg PO HS LIZZIE PRN Reason: Protocol Stop: 12/25/17 20:59 Last Admin: 10/30/17 20:23 Dose: 100 mg General: Alert, Cooperative, No acute distress HEENT: Atraumatic, PERRLA, EOMI Neck: Supple, no JVD, no Thyromegaly Cardiovascular: Regular rate, Normal S1, Normal S2 Lungs: Other (has bl rales) Abdomen: Soft Extremities: Other (has sig contractures of UE and LE) Neurological: Other (bilateral upper and lower extremity contractures) Assessment/Plan - Assessment Assessment: Asp PNA Neuroleptic Malignant syn-per history Muscle spasms COPD OAB Hyponatremia - Plan Plan: On IV Zosyn. Will send inquiries to other facilities. Met with niece, had an extended meeting. Continue pain control. Muscle spasms stable. Nutritional Asmnt/Malnutr-PDOC - Dietary Evaluation Malnutrition Findings (Please click <Entered> for more info): Nutritional Asmnt/Malnutrition Start: 10/27/17 16: 49 Text: Status: Complete Freq: Document 10/27/17 16:49 MONET (Rec: 10/27/17 17:03 [facility] Nutritional Asmnt/Malnutrition Patient General Information Nutritional Screening High Risk Consult Diagnosis aspiration PNA Pertinent Medical Hx/Surgical Hx muscle spasm, neuroleptic malignant syndrome, COPD, overactive bladder, psychosis Subjective Information Consult received for wound. Pt seen lying in bed at time of visit, family at bedside. Pt has no preference on food. Per EMR, pt consumed 75% of breakfast this morning. Current Diet Order/ Nutrition Support mech chopped, nectar liquid Pertinent Labs colace, culturelle, piperacillin, kcl, seroquel, nacl 0.9% Nutritional Hx/Data Height 1.65 m Height (Calculated Centimeters) 165.1 Current Weight (lbs) 50.802 kg Weight (Calculated Kilograms) 50.8 Weight (Calculated Grams) 37449.3 [place] Body Weight 136 Body Mass Index (BMI) 18.6 Weight Status Approriate GI Symptoms GI Symptoms None Difficult in: None Skin Integrity/Comment: Open small wound on fernanda prominence on left upper back Estimated Nutritional Goals BEE in Kcals: Using Current wt Calories/Kcals/Kg 27-32 Kcals Calculated 6595-9049 Protein: Using Current wt Protein g/k.2-1.4 Protein Calculated 61-71 Fluid: ml 1377-1632ml (1ml/kcal) Nutritional Problem 1. Problem Problem increased nutrition needs Etiology increased metabolic demand for wound healing Signs/Symptoms: small open wound on back Malnutrition Alert Body Fat Depletion (Non-Severe) Mild Depletion Protein-Calorie Malnutrition N/A Is there a minimum of two criteria No selected? Query Text:Check all the applicable criteria. A minimum of two criteria are recommended for diagnosis of either severe or non-severe malnutrition. Intervention/Recommendation Comments 1. Continue with current diet as ordered. Encouraged PO intake. 2. Monitor PO intake, wt, labs and skin integrity 3. F/U as high risk in 2-3 days, 10/29-10/30 Expected Outcomes/Goals Expected Outcomes/Goals 1. PO intake to meet at least 75% of nutritional needs. 2. Wt stability, wound to heal , labs to approach WNL.
--- NOTE | 2017-11-01 07:04 | Discharge Summary ---
DATE OF DISCHARGE: 10/31/2017 DATE OF DISCHARGE: To longterm facility 10/31/2017. CAUSE OF ADMISSION: The patient is a 42-year-old male. He has history of neuroleptic malignant syndrome. He has history of psychosis and had been on psych meds for years. At the nursing facility, he was found to have fevers, chills and x-ray shows bilateral infiltrates. He was sent to the hospital as he was declining, he was found to have aspiration pneumonia and sepsis. ADMITTING DIAGNOSES: 1. Bilateral aspiration pneumonia. 2. Sepsis. 3. Hypokalemia. 4. Muscle spasm. 5. History of neuroleptic malignant syndrome. 6. Chronic obstructive pulmonary disease. 7. Muscle spasms with contractures. 8. Overactive bladder. 9. Hyponatremia. DISCHARGE DIAGNOSES: 1. Bilateral aspiration pneumonia. 2. Sepsis. 3. Hypokalemia. 4. Muscle spasm. 5. History of neuroleptic malignant syndrome. 6. Chronic obstructive pulmonary disease. 7. Muscle spasms with contractures. 8. Overactive bladder. 9. Hyponatremia. SUMMARY OF HOSPITAL COURSE: The patient was started on IV normal saline. His sodium started to trend up. He also received a K-rider. He was started on IV Zosyn. He tolerated that very well. He was on soft diet and nectar thick consistency liquids. Also, ultimately the patient started to talk when he became more stable. His niece had visited, originally she told me that the patient does not want to go back to [facility], however, later when the patient's mother was called. The patient and the patient's mother agreed to go back to the same longterm facility. Physical exam and labs as charted. PROGNOSIS: Fair. ACTIVITY: As tolerated. The patient is mostly bedbound. PROCEDURES: None. CONSULTS: None. PHYSICAL EXAM AND LABS: As charted. MEDICATIONS: All medication reviewed and reconciled. We also finished IV Zosyn for 3 more days at the longterm facility, those were the orders given. [facility]# [id number]
== END 2017-10-31 18:20 | DRG 871 ==
LOC: ER 18:05 → TELE 19:40
PROVIDERS: ADMIT General Practice; ATTEND General Practice
DX: A41.9 Sepsis, unspecified organism (principal); J69.0 Pneumonitis due to inhalation of food and vomit; G21.0 Malignant neuroleptic syndrome; E87.1 Hypo-osmolality and hyponatremia; J44.0 Chronic obstructive pulmonary disease with (acute) lower respiratory infection; E87.6 Hypokalemia; N32.81 Overactive bladder; F29 Unspecified psychosis not due to a substance or known physiological condition; F20.9 Schizophrenia, unspecified; R09.02 Hypoxemia; M62.838 Other muscle spasm; Z74.01 Bed confinement status
CPT/HCPCS: 36415-UA; 71045-TC; 7610; 80048-TC; 83036-90; 83605; 83735-TC; 85007-TC; 85025-TC; 85027-TC; 93005; 94760; J1644; J2001; J2060; J2543; J3480; J7030; Z7610